=== PATIENT | female | born 1965 ===

== ENCOUNTER 2018-07-07 02:31 | Emergency (ER) | payer MEDICAID ==
[2018-07-07 02:43] VITALS: BMI 28.9
[2018-07-07 02:47] VITALS: RESP 18
--- NOTE | 2018-07-07 03:23 | ED PDOC ---
Arrival/HPI - General Chief Complaint: Shortness Of Breath Time Seen by Provider: 07/07/18 02:39 Historian: Patient - History of Present Illness Narrative History of Present Illness (Text): 07/07/18 02:40 53 year old female, whose past medical history includes asthma, presents to the emergency department complaining of worsening asthma today. Patient took 2 albuterol, inhaler, and Benadryl with relief. Patient also complaining of cough bringing up clear phlegm for 1 day. Patient is also now complaining of tachycardia and reports she felt lightheaded like she was going to faint. Patient denies any fever, chills, chest pain, nausea, vomiting, diarrhea, urinary symptoms, back pain, neck pain, headache, dizziness, or any other complaints. PMD: Dr. Deepak Hayward Symptom Onset: Gradual Symptom Course: Improving Activities at Onset: Light Context: Home Past Medical History - Provider Review Nursing Documentation Reviewed: Yes - Pulmonary Hx Asthma: Yes - Psychiatric Hx Substance Use: No - Anesthesia Hx Anesthesia: No Family/Social History - Physician Review Nursing Documentation Reviewed: Yes Family/Social History: No Known Family HX Smoking Status: Never Smoked Hx Alcohol Use: No Hx Substance Use: No Allergies/Home Meds Allergies/Adverse Reactions: Allergies No Known Allergies Allergy (Verified 07/07/18 02:43) Review of Systems - Physician Review All systems were reviewed & negative as marked: Yes - Review of Systems Constitutional: absent: Fevers, Other (Chills) Respiratory: SOB, Cough Cardiovascular: absent: Chest Pain Gastrointestinal: absent: Diarrhea, Nausea Genitourinary Female: absent: Dysuria, Frequency, Hematuria Musculoskeletal: absent: Back Pain, Neck Pain Neurological: Other (lightheadedness). absent: Headache, Dizziness Physical Exam Vital Signs Reviewed: Yes Vital Signs Pulse Resp BP Pulse Ox 07/07/18 02:47 127 H 18 154/91 H 97 Blood Pressure: Hypertensive Pulse: Tachycardic Respiratory Rate: Normal Appearance: Positive for: Well-Appearing, Non-Toxic, Comfortable Pain Distress: None Mental Status: Positive for: Alert and Oriented X 3 - Systems Exam Head: Present: Atraumatic, Normocephalic Pupils: Present: PERRL Extroacular Muscles: Present: EOMI Conjunctiva: Present: Normal Mouth: Present: Moist Mucous Membranes Neck: Present: Normal Range of Motion Respiratory/Chest: Present: Clear to Auscultation, Good Air Exchange. No: Respiratory Distress, Accessory Muscle Use Cardiovascular: Present: Regular Rate and Rhythm, Normal S1, S2. No: Murmurs Abdomen: No: Tenderness, Distention, Peritoneal Signs Back: Present: Normal Inspection Upper Extremity: Present: Normal Inspection. No: Cyanosis, Edema Lower Extremity: Present: Normal Inspection. No: Edema Neurological: Present: GCS=15, CN II-XII Intact, Speech Normal Skin: Present: Warm, Dry, Normal Color. No: Rashes Psychiatric: Present: Alert, Oriented x 3, Normal Insight, Normal Concentration Medical Decision Making ED Course and Treatment: 07/07/18 02:40 Impression: 53 year old female presents complaining of worsening asthma today associated with cough with phloem, tachycardia, and lightheadedness. Plan: -- Reassess and disposition Progress Notes: 07/07/18 02:50 EKG shows Sinus tachycardia at 126 BPM with normal axis, normal intervals, no ST elevation. Interpreted by me. Patient in absolutely no distress, ambulating without difficulty to bathroom, with no wheezing on lung exam. Placed on software installer. Initially tachycardic, but HR improved to ~100. 07/07/18 03:31 On re-evaluation, patient is in no acute distress. I have discussed the plan with the patient, who expresses understanding. Patient in agreement with plan to be discharged home. Patient is stable for discharge. Patient was instructed to follow up with physician or return if symptoms worsen or new concerning symptoms arise. - Scribe Statement The provider has reviewed the documentation as recorded by the Jesus Alberto العراقي Provider Scribe Attestation: All medical record entries made by the Jesus Alberto were at my direction and personally dictated by me. I have reviewed the chart and agree that the record accurately reflects my personal performance of the history, physical exam, medical decision making, and the department course for this patient. I have also personally directed, reviewed, and agree with the discharge instructions and disposition. Disposition/Present on Arrival - Present on Arrival Any Indicators Present on Arrival: No History of DVT/PE: No History of Uncontrolled Diabetes: No Urinary Catheter: No History of Decub. Ulcer: No History Surgical Site Infection Following: None - Disposition Have Diagnosis and Disposition been Completed?: Yes Diagnosis: Asthma Disposition: HOME/ ROUTINE Disposition Time: 03:26 Condition: STABLE Discharge Instructions (ExitCare): Asthma, Adult (DC) Additional Instructions: JOSE ALEJANDRO CLEMONS, thank you for letting us take care of you today. Your provider was Romina Mosley MD and you were treated for ASTHMA. The emergency medical care you received today was directed at your acute symptoms. If you were prescribed any medication, please fill it and take as directed. It may take several days for your symptoms to resolve. Return to the Emergency Department if your symptoms worsen, do not improve, or if you have any other problems. Please contact your doctor or call one of the physicians/clinics you have been referred to that are listed on the Patient Visit Information form that is included in your discharge packet. Bring any paperwork you were given at discharge with you along with any medications you are taking to your follow up visit. Our treatment cannot replace ongoing medical care by a primary care provider outside of the emergency department. Thank you for allowing the [facility] team to be part of your care today. If you had an X-Ray or CT scan: A Radiologist will review the ED reading if any change in treatment is needed we will contact you. If you had a blood, urine, or wound culture: It will take several days for the results, if any change in treatment is needed we will contact you. If you had an STI test: It will take 48 hours for the results. Please call after 1 week if you have not heard back. Referrals: Laura Hayward MD [Primary Care Provider] - Follow up with primary Forms: [employer] (German)
[2018-07-07 03:54] VITALS: BP 122/73; PULSE 98; TEMP 98.2; O2SAT 98
--- NOTE | 2018-07-07 22:30 | CARD ---
APPROVED REPORT Date of service: 07/07/2018 EKG Measurement Heart [id number] <Conclusion> Sinus tachycardia Nonspecific ST and T wave abnormality Abnormal ECG
== END 2018-07-07 03:54 | disposition home or self-care (01) ==
LOC: ED 02:31 → MERGE 02:31 → ED 03:54
DX: J45.909 Unspecified asthma, uncomplicated (principal)